=== PATIENT | male | born 1980 | race Caucasian/White ===

== ENCOUNTER 2016-10-18 12:10 | Emergency (ER) | payer SELFPAY ==
[2016-10-18 13:05] VITALS: BP 126/89
[2016-10-18] MEDS ORDERED: Tenofovir/Emtricitabine(*) TAB PO ONE ×2 (15:29→15:35)
[2016-10-18] MEDS ORDERED: Raltegravir* 400 MG TAB PO ONE ×4 (15:30→16:28)
--- NOTE | 2016-10-18 15:45 | UC ---
Hand/Wrist HPI - HPI Summary HPI Summary: Body exposure from a patient on a torn cuticle left third finger---patient immediately washed his hands----Davin was responding the an opiate overdose respiratory arrest in the parking lot at [facility] during a jugular stick by md Jin got blood on his hand - History Of Current Complaint Chief Complaint: UCBodyFluidExposure Stated Complaint: BLOOD EXPOSURE Time Seen by Provider: 10/18/16 13:00 Hx Obtained From: Patient ?: No Mechanism Of Injury: blood exposure of pt with Hepatitis C on a torn cuticle Onset/Duration: Sudden Onset, Lasting Hours, Resolved - immediatly wash hands Severity Initially: Moderate Severity Currently: Moderate Pain Intensity: 0 - Allergies/Home Medications Allergies/Adverse Reactions: Allergies Allergy/AdvReac Type Severity Reaction Status Date / Time No Known Allergies Allergy Verified 01/22/16 11:15 PMH/Surg Hx/FS Hx/Imm Hx Previously Healthy: Yes Other History Of: Negative For: HIV, Hepatitis B, Hepatitis C, Anticoagulant Therapy - Surgical History Surgical History: Yes Surgery Procedure, Year, and Place: foreign body removal right hand, inguinal hernia repair - Family History Known Family History: Positive: Cardiac Disease, Diabetes Negative: Hypertension - Social History Occupation: Employed Part-time Lives: With Family Alcohol Use: Occasionally Substance Use Type: None Smoking Status (MU): Never Smoked Tobacco - Immunization History Most Recent Influenza Vaccination: [id number] Review of Systems Constitutional: Negative Skin: Other - torn cuticle left third finger-with blood exposure from overdosed patient Eyes: Negative ENT: Negative Respiratory: Negative Cardiovascular: Negative Gastrointestinal: Negative Genitourinary: Negative Motor: Negative Neurovascular: Negative Musculoskeletal: Negative Neurological: Negative Psychological: Negative All Other Systems Reviewed And Are Negative: Yes Physical Exam Triage Information Reviewed: Yes Appearance: Well-Appearing, No Pain Distress, Well-Nourished Vital Signs: Initial Vital Signs Temp 98.6 F 10/18/16 13:02 Pulse 70 10/18/16 13:02 Resp 18 10/18/16 13:02 BP 126/89 10/18/16 13:02 Pulse Ox 98 10/18/16 13:02 Vital Signs Reviewed: Yes Eye Exam: Normal Eyes: Positive: Conjunctiva Clear ENT Exam: Normal ENT: Positive: Normal ENT inspection, Hearing grossly normal. Negative: Nasal congestion, Trismus, Muffled/hoarse voice Dental Exam: Normal Neck exam: Normal Neck: Positive: Supple, Nontender Respiratory Exam: Normal Respiratory: Positive: Chest non-tender, No respiratory distress, No accessory muscle use Cardiovascular Exam: Normal Cardiovascular: Positive: RRR, Pulses Normal, Brisk Capillary Refill Musculoskeletal Exam: Normal Musculoskeletal: Positive: Strength Intact, ROM Intact, No Edema Neurological Exam: Normal Neurological: Positive: Alert, Muscle Tone Normal Psychological Exam: Normal Skin: Positive: Other - torn and previously bleeding cuticle left third rigger Re-Evaluation - Re-Evaluation Second Eval Change: Improved - education and emotional support provided for HIV-PEP, Hep C hep B and safe sex untill follow up tests return negative Hand/Wrist Course/Dx - Course Course Of Treatment: HIV PEP, lab studies per protocol guidelines---first dose of PEP, first 7 days of med, rx for remainder and follow up plan with Dr. Saldana - Differential Dx/Diagnosis Differential Diagnosis/HQI/PQRI: Other - Blood Exposure Provider Diagnoses: Blood exposure on open skin, HIV PEP Discharge - Discharge Plan Condition: Stable Disposition: HOME Prescriptions: Ondansetron ODT TAB* [Zofran 4 MG Odt TAB*] 4 mg PO Q6H PRN #16 tab.odt PRN Reason: Nausea/Vomiting Raltegravir* [Isentress*] 400 mg PO BID #41 tab Tenofovir/Emtricitabine(*) [Truvada*] 1 tab PO DAILY #20 tab Patient Education Materials: Needle Stick Injuries (ED) Referrals: Frankie PARISI,Loco Gillis [Medical Doctor] - 5 Days
[2016-10-18 18:35] LABS: Hematocrit 45 % (42-52); Hemoglobin 15.2 g/dl (14.0-18.0); Mean Corpuscular HGB Conc 34 g/dl (31-36); Mean Corpuscular Hemoglobin 29 pg (27-31); Mean Corpuscular Volume 86 fL (80-94); Mean Platelet Volume 8 um3 (7.4-10.4); Red Blood Count 5.26 10^6/ul (4.0-5.4); Red Cell Distribution Width 13 % (10.5-15); White Blood Count 5.9 10^3/ul (3.5-10.8)
[2016-10-18 18:47] LABS: Albumin 4.4 g/dL (3.2-5.2); BUN/Creatinine Ratio 18.2 (8-20); Calcium 9.4 mg/dL (8.6-10.3); EGFR African American 109.4 (>60); EGFR Non-African American 85.1 (>60); Globulin 2.5 g/dL (2-4); Potassium 3.8 mmol/L (3.5-5.0); Rapid HIV INT CONT QC Line Present; Rapid HIV Kit Lot# F308002; Total Bilirubin 0.6 mg/dL (0.2-1.0); Total Protein 6.9 g/dL (6.4-8.9)
[2016-10-18 18:48] LABS: Manual Entry Verification MD
== END 2016-10-18 17:01 | disposition home or self-care (01) ==
LOC: UCEAST 12:10
DX: Z77.21 Contact with and (suspected) exposure to potentially hazardous body fluids (principal); Z11.4 Encounter for screening for human immunodeficiency virus [HIV]
CPT/HCPCS: 36415; 80053; 85025; 86703; 86706; 86803; 87340; 99213; G0463

== ENCOUNTER 2017-09-16 15:38 | Emergency (ER) | payer OTHER ==
[2017-09-16 16:02] VITALS: BP 113/67
--- NOTE | 2017-09-16 16:03 | UC ---
UC General HPI - HPI Summary HPI Summary: 36 yo male presents with fever, body aches, and fatigue. He tells me that for the last 6 months, about once a month he will have a day where he develops a fever, fatigue, body aches, and sometimes b/l knee pain/aching. He would take tylenol/ibuprofen and the next day feel fine. The last two months he noticed this trend increasing to where he is having an episode like this once a week - no new symptoms. He saw his PCP for this a few weeks ago and his PCP was most worried about cancer - per pt. CBC, CMP, TSH, lyme, antiSS A/B, and ESR were drawn and all WNL. At the time of these labs, pt was not experiencing any symptoms. He woke up today and is experiencing a fever, fatigue, and general body aches - he came her urgent care hoping to get blood work while he is symptomatic. 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 His family members are NOT experiencing similar symptoms. Of note, he has had a dry cough for the past 3-4 weeks. He asked the hospital's infectious disease physician who suggested it could be Mediterranean fever as pt is [place] - but the only test for this is genetic testing. Denies sore throat, headache, dizziness, vision changes, SOB, chest pain, abdominal pain, n/v/d/c, hx of tick bite, abnormal rashes/bumps/bruising, dysuria, back pain, numbness, or tingling. - History of Current Complaint Chief Complaint: UCGeneralIllness Stated Complaint: FLU-LIKE SYMPTOMS Time Seen by Provider: 09/16/17 16:02 Hx Obtained From: Patient Onset/Duration: Gradual Onset Current Severity: None Pain Intensity: 0 - Allergy/Home Medications Allergies/Adverse Reactions: Allergies Allergy/AdvReac Type Severity Reaction Status Date / Time No Known Allergies Allergy Verified 01/22/16 11:15 Home Medications: Home Medications NK [No Home Medications Reported] 09/16/17 [History Confirmed 09/16/17] PMH/Surg Hx/FS Hx/Imm Hx - Additional Past Medical History Additional PMH: None Previously Healthy: Yes Other History Of: Negative For: HIV, Hepatitis B, Hepatitis C, Anticoagulant Therapy - Surgical History Surgical History: Yes Surgery Procedure, Year, and Place: foreign body removal right hand, inguinal hernia repair - Family History Known Family History: Positive: Cardiac Disease, Diabetes Negative: Hypertension - Social History Occupation: Employed Full-time Lives: With Family Alcohol Use: Occasionally Substance Use Type: None Smoking Status (MU): Never Smoked Tobacco - Immunization History Most Recent Influenza Vaccination: [id number] Review of Systems Constitutional: Fever, Fatigue, Other - Body aches Skin: Negative Eyes: Negative ENT: Negative Respiratory: Negative Cardiovascular: Negative Gastrointestinal: Negative Genitourinary: Negative Motor: Negative Neurovascular: Negative Musculoskeletal: Negative Neurological: Negative Psychological: Negative All Other Systems Reviewed And Are Negative: Yes Physical Exam - Summary Physical Exam Summary: GENERAL: NAD. WDWN. No pain distress. SKIN: No rashes, sores, ulcers, masses, lesions. No clubbing or cyanosis. HEENT: Head: AT/NC Eyes: PERRLA. EOM intact. Conjunctiva clear without inflammation or discharge. Ears: Hearing grossly normal. TMs intact, no bulging, erythema, or edema. Nose: Nasal mucosa pink and moist. NTTP maxillary and frontal sinus. Throat: Posterior oropharynx without exudates, erythema, or tonsillar enlargement. Uvula midline. NECK: Supple. Nontender. No lymphadenopathy. CHEST: CTAB. No r/r/w. No accessory muscle use. Breathing comfortably and in no distress. CV: RRR. Without m/r/g. Pulses intact. Brisk cap refill. ABDOMEN: Soft. NTTP. No distention or guarding., No organomegaly. No CVA tenderness. Bowel sounds present MSK: FROM in B/L UEs and LEs with symmetric strength. NEURO: A&Ox3. 3 word recall, remote, recent memory, ability to follow 2-step directions, and attention intact. CN II XII grossly intact. [id number] are intact. Gait with normal base. Romberg: maintains balance, no pronator drift. Sensory: intact throughout. Reflexes: biceps, triceps, brachioradialis, knee, and ankle +2. Normal speech. No facial drooping. PSYCH: Age appropriate behavior. Triage Information Reviewed: Yes Vital Signs: Initial Vital Signs Temp 100.9 F 09/16/17 15:51 Pulse 95 09/16/17 15:51 Resp 18 09/16/17 15:51 BP 113/67 09/16/17 15:51 Pulse Ox 96 09/16/17 15:51 Course/Dx - Course Course Of Treatment: CXR: IMPRESSION: NO ACTIVE CARDIOPULMONARY DISEASE IS NOTED. Pt's last HIV test was October 2016 and was negative. Pt does not want this repeated today as he feels he has no risk for HIV. Given that he is currently symptomatic and has a documented fever; will draw for CBC, CMP, CRP, LDH, Lyme, [place], EBV, Vit B12, and ferritin and have him f/u with his PCP. Pt was agreeable to this plan. - Differential Dx - Multi-Symptom Provider Diagnoses: Fever. Fatigue. Body aches Discharge - Sign-Out/Discharge Documenting (check all that apply): Discharge/Admit/Transfer - Discharge Plan Condition: Stable Disposition: HOME Referrals: Frankie PARISI,Loco Gillis [Medical Doctor] - If Needed Ted Child MD [Primary Care Provider] - Additional Instructions: If you develop a fever, shortness of breath, chest pain, new or worsening symptoms - please call your PCP or go to the ED. - Billing Disposition and Condition Condition: STABLE Disposition: Home
--- NOTE | 2017-09-16 16:47 | RAD ---
Indication: Cough. 2 views of the chest including dual energy PA views demonstrate no mediastinal shift. Heart is of normal size and configuration. Lung lockhart are clear. IMPRESSION: NO ACTIVE CARDIOPULMONARY DISEASE IS NOTED.
[2017-09-17 14:25] LABS: ABS Basophils 0 10^3/ul (0-0.2); ABS Eosinophils 0 10^3/ul (0-0.6); ABS Lymphocytes 0.9 10^3/ul (1.0-4.8); ABS Monocytes 0.5 10^3/ul (0-0.8); ABS Neutrophils 13.3 10^3/ul (1.5-7.7); ABS Nucleated RBC 0 10^3/ul; Eosinophil % 0.1 % (0-6); Hematocrit 45 % (42-52); Hemoglobin 15.1 g/dl (14.0-18.0); Lymphocyte % 6.1 % (25-47); Mean Corpuscular HGB Conc 34 g/dl (31-36); Mean Corpuscular Hemoglobin 28 pg (27-31); Mean Corpuscular Volume 84 fL (80-94); Mean Platelet Volume 8.5 um3 (7.4-10.4); Nucleated Red Blood Cells % 0; Platelet Count 220 10^3/ul (150-450); Red Cell Distribution Width 13 % (10.5-15); White Blood Count 14.8 10^3/ul (3.5-10.8)
[2017-09-17 14:45] LABS: EGFR Non-African American 86.6 (>60)
--- NOTE | 2017-09-18 07:23 | UC ---
- Progress Note Progress Note: Patient seen 2 days ago with fever fatigue and body aches. Multiple labs drawn. Abnormal labs include a WBC of 14.8 and a glucose of 156. His CRP was 13.15. Patient's chest x-ray was negative. Please call patient to check on condition and reinforced that he should follow up with his own physician tomorrow. If he has any questions or concerns he can be reevaluated at the [facility] or the emergency department. Ruperto Isabel MD Discharge - Sign-Out/Discharge Documenting (check all that apply): Post-Discharge Follow Up - Discharge Plan Condition: Stable Disposition: HOME Referrals: Frankie PARISI,Loco Gillis [Medical Doctor] - If Needed Ted Child MD [Primary Care Provider] - Additional Instructions: If you develop a fever, shortness of breath, chest pain, new or worsening symptoms - please call your PCP or go to the ED. - Billing Disposition and Condition Condition: STABLE Disposition: Home
--- NOTE | 2017-09-19 16:57 | UC ---
- Progress Note Progress Note: 09/19/2017 Pt's labs results abnormal WBC:14, glucose: 156, CRP:15, LDH 178. DR Lovett already addressed Pt's labs and Dr Alejandra spoke to Pt. Pt already call and advised to f/[place]ett w/ his PCP for further evaluation and treatment. Jia Phan PA-C Discharge - Sign-Out/Discharge Documenting (check all that apply): Discharge/Admit/Transfer - D/C home - Discharge Plan Condition: Stable Disposition: HOME Referrals: Frankie PARISI,Loco Gillis [Medical Doctor] - If Needed Ted Child MD [Primary Care Provider] - Additional Instructions: If you develop a fever, shortness of breath, chest pain, new or worsening symptoms - please call your PCP or go to the ED. - Billing Disposition and Condition Condition: STABLE Disposition: Home
== END 2017-09-16 17:50 | disposition home or self-care (01) ==
LOC: UCEAST 15:38
DX: R50.9 Fever, unspecified (principal); R53.83 Other fatigue; M79.1 Myalgia; Z82.49 Family history of ischemic heart disease and other diseases of the circulatory system; Z83.3 Family history of diabetes mellitus
CPT/HCPCS: 36415; 71046; 80053; 82607; 82728; 83615; 85025; 86038; 86140; 86618; 86664; 86665; 99211; G0463